=== PATIENT | female | born 1960 | race American Indian/Alaskan Native ===

== ENCOUNTER 2016-10-17 14:34 | Outpatient (CLI) | payer OTHER ==
--- NOTE | 2016-10-17 15:46 | Cat Scan Report ---
CT CHEST WITHOUT CONTRAST: 10/17/16 14:34:00 CLINICAL: Abnormal chest x-ray with a left lower lobe nodule. COMPARISON: 10/09/16 chest x-ray from. TECHNIQUE: Volumetric acquisition and 1.25 mm scan reconstructions without contrast. FINDINGS: 7 mm calcified granuloma in the left lower lobe image 111, series 1. No other lung nodule and no mass. Calcified left hilar and subcarinal knees lymph nodes. No mediastinal or hilar lymphadenopathy. Normal trachea and esophagus. The thyroid is diffusely enlarged with no identifiable nodule or mass. The upper abdomen is remarkable for granulomatous calcifications in the liver and spleen and a single calculus in the gallbladder. The bones and soft tissues are normal. IMPRESSION: 1. Old granulomatous disease with a 7 mm left lower lobe granuloma, granulomatous calcifications of lymph nodes in the left hilum and mediastinum and granulomatous calcifications in the liver and spleen. 2. No noncalcified lung nodule or mass. 3. Diffuse thyromegaly. Consider ultrasound for further evaluation.
== END 2016-10-17 14:35 | disposition home or self-care (01) ==
LOC: SPVIMAG 14:34
PROVIDERS: ATTEND Internal Medicine
DX: R91.1 Solitary pulmonary nodule (principal); J84.10 Pulmonary fibrosis, unspecified; E04.9 Nontoxic goiter, unspecified; K80.20 Calculus of gallbladder without cholecystitis without obstruction; E01.0 Iodine-deficiency related diffuse (endemic) goiter; D71 Functional disorders of polymorphonuclear neutrophils
CPT/HCPCS: 71250